=== PATIENT | male | born 1960 | race Caucasian/White ===

== ENCOUNTER → 2023-08-26 08:10 | Outpatient (REF) | payer OTHER, SELFPAY | LOC: RCS 08:10 | PROVIDERS: ATTENDING PHYSICIAN Nurse Practitioner Family; FAMILY PHYSICIAN Family Medicine | DX: R55 Syncope and collapse (principal); Z09 Encounter for follow-up examination after completed treatment for conditions other than malignant neoplasm; Z98.890 Other specified postprocedural states | CPT/HCPCS: 93225; 93226 ==

== ENCOUNTER → 2023-10-03 07:56 | Outpatient (REF) | payer SELFPAY | LOC: RAD 07:56 | PROVIDERS: ATTENDING PHYSICIAN Family Medicine | DX: E78.00 Pure hypercholesterolemia, unspecified (principal); I49.3 Ventricular premature depolarization; R55 Syncope and collapse | CPT/HCPCS: 75571 ==

== ENCOUNTER → 2024-06-23 07:29 | Outpatient (REF) | payer OTHER, SELFPAY | LOC: PAVMRI 07:29 | PROVIDERS: ATTENDING PHYSICIAN Nurse Practitioner Family; FAMILY PHYSICIAN Family Medicine | DX: G25.2 Other specified forms of tremor (principal); E23.6 Other disorders of pituitary gland | CPT/HCPCS: 70553; A9575 ==

== ENCOUNTER 2024-07-01 06:21 | Day surgery (SDC) | payer OTHER, SELFPAY | END 2024-07-01 14:21 | disposition home or self-care (01) | LOC: GI 06:21 | PROVIDERS: ATTENDING PHYSICIAN Internal Medicine Gastroenterology | DX: Z12.11 Encounter for screening for malignant neoplasm of colon (principal); D12.3 Benign neoplasm of transverse colon; K64.8 Other hemorrhoids; Z98.0 Intestinal bypass and anastomosis status; Z86.0101 Personal history of adenomatous and serrated colon polyps | CPT/HCPCS: 45385; 45380; 88305 ==